=== PATIENT | female | born 1980 | race American Indian/Alaskan Native ===

== ENCOUNTER 2016-08-28 18:02 | Emergency (ER) | payer SELFPAY ==
--- NOTE | 2016-08-28 18:41 | Emergency Department Report ---
Chief Complaint: Abdominal Pain Stated Complaint: /SOB/VOMITTING/NAUSEA Time Seen by Provider: 08/28/16 18:34 - HPI History of Present Illness: 36-year-old female presents today with lower abdominal pain, fatigue, nausea, vomiting, shortness of breath, dizziness, chills 4 days. Denies rash or bleeding, discharge, dysuria or fever. Positive for test 2 weeks ago. - ROS Review of Systems: Per HPI - Exam Vital Signs: Vital Signs 08/28/16 18:23 Temperature 98.4 F Pulse Rate 66 Respiratory 16 Rate Blood Pressure 124/78 O2 Sat by Pulse 100 Oximetry Physical Exam: General: 36-year-old female in no acute distress. CV: Regular rate and rhythm. Lungs: Clear to auscultation bilaterally. Abdomen: Tenderness to palpation of right and left lower quadrants. No guarding or rebound tenderness. MSE screening note: Focused history and physical exam performed. Due to findings the following was ordered: ED Disposition for MSE Condition: Stable Instructions: Abdominal Pain (ED)
[2016-08-28 19:20] LABS: Basophils % (Auto) 0.3 % (0.0-1.8); Eosinophils % (Auto) 0.3 % (0.0-4.3); Hemoglobin 15.1 gm/dl (10.1-14.3); Mean Corpuscular HGB Conc 33 % (30-34); Mean Corpuscular Hemoglobin 28 pg (28-32); Mean Corpuscular Volume 87 fl (79-97); Platelet Count 178 K/mm3 (140-440); Red Blood Count 5.32 M/mm3 (3.65-5.03); Red Cell Distribution Width 13.6 % (13.2-15.2)
[2016-08-28 19:44] LABS: Amylase 155 units/L (27-131); Blood Urea Nitrogen 6 mg/dL (7-17); Calcium 9.6 mg/dL (8.4-10.2); Carbon Dioxide 26 mmol/L (22-30); Chloride 98.6 mmol/L (98-107); Glucose 90 mg/dL (65-100); Lipase 109 units/L (13-60); Potassium 4.3 mmol/L (3.6-5.0); Sodium 137 mmol/L (137-145)
[2016-08-28 19:45] LABS: Anion Gap 17 mmol/L
[2016-08-29] MEDS ORDERED: ZOFRAN ODT PO ONE (01:06)
--- NOTE | 2016-08-29 02:04 | Admit Criteria Form ---
Admission Criteria Documentation: ABDOMINAL PAIN: OBSERVATION CARE USE THIS FORM ONLY WHEN INPATIENT ADMISSION CRITERIA ARE NOT MET. (Place X for any and all applicable criteria): Placement for observation care is indicated for a patient with ANY ONE of the following(1)(2)(3)(4)(5))(6): []I. Suspected condition requiring continued monitoring (e.g., ectopic , appendicitis) [A] []II. Undiagnosed pain after evaluation and initial treatment with ANY ONE of the following: []a) Continued pain unrelieved by symptomatic treatment []b) Patient unable to maintain hydration status []c) Concerning finding on examination (e.g., increasing tenderness, focal abdominal finding) or diagnostic testing (e.g., air fluid level on x-ray) []III. A child whose situation includes ANY ONE of the following: []a) Clinical response to outpatient therapy uncertain []b) Outpatient supervision by parents or caregivers uncertain [X]IV. Other observation care needs. (Also use General Criteria: Observation Care). The original [facility] content created by [facility] has been revised. The portions of the content which have been revised are identified through the use of italic text, and [facility] has neither reviewed nor approved the modified material. All other unmodified content is copyright [facility]. Please see references footnoted in the original [facility] edition 2015 Admission Criteria Met: Pending
--- NOTE | 2016-08-29 02:34 | Ultrasound Report ---
FINAL REPORT EXAM: US OB < = 14 WEEKS FETUS HISTORY: n/v COMPARISON: None available. TECHNIQUE: Several real-time grayscale and color Doppler images were obtained. Transabdominal and transvaginal exam. FINDINGS: The uterus measures 11.9 x 7.2 x 6.8 centimeters. Single live IUP. Estimated gestational age 8 weeks 1 day. Estimated delivery date April 09, 2018. heart rate 170 beats per minute. Tiny subchorionic hemorrhage measuring 5 x 7 x 2 millimeters. Cervix is closed. Yolk sac is present. Right ovary measures 2.2 x 1.4 x 2.2 centimeters. Left ovary measures 2.2 x 1.0 x 1.7 centimeters. Within the right ovary there is a 1.4 centimeter cystic structure which could reflect corpus luteal cyst. No adnexal masses are demonstrated. IMPRESSION: Single live IUP. Estimated gestational age 8 weeks 1 day. Estimated delivery date April 09, 2018. Tiny subchorionic hemorrhage. 1.4 centimeter right ovarian cystic structure which may reflect corpus luteal cyst.
[2016-08-29 02:36] LABS: Bilirubin,Urine NEG (Negative); Blood,Urine SM (Negative); Ketones,Urine 80 mg/dL (Negative); Leukocyte Esterase,Urine NEG (Negative); Mucus,Urine 3+ /HPF; Nitrite,Urine NEG (Negative)
[2016-08-29 03:08] LABS: INR 1.09 (0.87-1.13)
[2016-08-29 03:09] LABS: Partial Thromboplastin Time 32.9 Sec. (24.2-36.6)
[2016-08-29 05:15] VITALS: BP 123/68
== END 2016-08-29 05:17 | disposition left against medical advice (07) ==
LOC: ED 18:02
DX: R10.30 Lower abdominal pain, unspecified (principal); R53.83 Other fatigue; R11.2 Nausea with vomiting, unspecified; R06.02 Shortness of breath; R42 Dizziness and giddiness; R68.83 Chills (without fever); Z53.21 Procedure and treatment not carried out due to patient leaving prior to being seen by health care provider
CPT/HCPCS: 36415; 76801; 76817; 80048; 81001; 82150; 83690; 84702; 85025; 85610; 85730; Q0162